=== PATIENT | female | born 1980 | race Caucasian/White ===

== ENCOUNTER 2018-08-07 07:09 | Inpatient (IN) | payer OTHER ==
[~2018-08-07] VITALS: Ht 172.7 cm; Wt 74.5 kg
[2018-08-07] VITALS (33 sets, daily range): BP systolic 87–126; BP diastolic 50–75; PULSE 10–103; TEMP 97.9–98.5
[~2018-08-07 07:09] MED LIST: LEVOTHYROXIN0.025 M1 PO; NORETHINDRONE PO; PRENATAL1 TA1 PO
[2018-08-07] MEDS ORDERED: SYNTHROID0.088 MG/T PO (07:41)
[2018-08-07 08:17] LABS: BASO % 0.2 % (0.0-2.0); EOS # 0.1 (0.0-0.7); EOS % 0.9 % (0-4.0); GRAN # 8.6 (1.4-6.5); GRAN % 76.9 % (42.2-75.2); HEMOGLOBIN 11.3 g/dl (12.5-16.0); LYMPH # 1.6 (1.2-3.4); LYMPH % 14.4 % (20.0-51.0); MEAN CELL VOLUME 90 fl (80.0-100.0); MEAN CORPUSCULAR HEMOGLOBIN 30 pg (27.0-31.0); MEAN CORPUSCULAR HGB CONC 34 g/dl (33.0-37.0); MEAN PLATELET VOLUME 10.7 fl (7.4-10.4); MONO # 0.8 (0.1-0.6); MONO % 6.8 % (1.7-9.3); PLATELET COUNT 252 K/mm3 (130-400); RED BLOOD COUNT 3.75 M/mm3 (4.10-5.30)
[2018-08-07 08:20] LABS: HEMATOCRIT 33.7 % (37.0-47.0)
[2018-08-08 04:00] VITALS: BP 105/69; PULSE 85; TEMP 98
[2018-08-08 08:50] VITALS: BP 110/73; PULSE 81; TEMP 98
[2018-08-08] MEDS ORDERED: IBU600 MG PO (09:39)
[2018-08-08 16:18] VITALS: BP 111/69; PULSE 89; TEMP 98.6
[2018-08-08 20:20] VITALS: BP 100/56; PULSE 91; TEMP 98.5
[2018-08-09 07:39] VITALS: BP 101/58; PULSE 90; TEMP 97.6
== END 2018-08-09 10:30 | disposition home or self-care (01) | DRG 807 ==
LOC: LDR 07:09 → OB 16:20
PROVIDERS: Obstetrics & Gynecology
PROC: 10E0XZZ Delivery of Products of Conception, External Approach (ICD-10-PCS; principal; 2018-08-07)
PROC: 3E033VJ Introduction of Other Hormone into Peripheral Vein, Percutaneous Approach (ICD-10-PCS; 2018-08-07)
PROC: 10907ZC Drainage of Amniotic Fluid, Therapeutic from Products of Conception, Via Natural or Artificial Opening (ICD-10-PCS; 2018-08-07)
PROC: 0HQ9XZZ Repair Perineum Skin, External Approach (ICD-10-PCS; 2018-08-07)
DX: O48.0 Post-term pregnancy (principal); Z37.0 Single live birth; O99.284 Endocrine, nutritional and metabolic diseases complicating childbirth; E03.9 Hypothyroidism, unspecified; Z3A.41 41 weeks gestation of pregnancy; O69.81X0 Labor and delivery complicated by cord around neck, without compression, not applicable or unspecified; O76 Abnormality in fetal heart rate and rhythm complicating labor and delivery; O70.0 First degree perineal laceration during delivery; O26.893 Other specified pregnancy related conditions, third trimester; Z67.41 Type O blood, Rh negative; O99.824 Streptococcus B carrier state complicating childbirth; O43.123 Velamentous insertion of umbilical cord, third trimester
CPT/HCPCS: J2540; J2590; J2795; J7120

== ENCOUNTER → 2023-12-08 | Outpatient (CLI) | payer OTHER ==
[~2023-12-08] MED LIST changes: +IBU600 MG PO; +SYNTHROID0.088 MG/T PO
== END ==
LOC: MC.RAD 09:43
DX: Z12.31 Encounter for screening mammogram for malignant neoplasm of breast (principal)